=== PATIENT | male | born 1960 | race Caucasian/White ===

== ENCOUNTER → 2016-12-27 | Outpatient (CLI) | payer OTHER ==
[2016-12-27 09:34] LABS: BASO % 0.2 %; BASO ABS # 0.02 K/uL (0-0.2); COMPLETE YES; EOS % 2.2 %; HEMATOCRIT 45.1 % (42-52); IG% 0.4 %; LYMPH % 19.8 %; LYMPH ABS # 1.69 K/uL (1.2-3.4); MEAN CELL VOLUME 93.2 fL (80-100); MEAN CORPUSCULAR HEMOGLOBIN 33.5 pg (25-34); MEAN CORPUSCULAR HGB CONC 35.9 g/dl (32-36); MEAN PLATELET VOLUME 9.8 fL (7.4-10.4); MONO % 7.9 %; NEUT % 69.5 %; PLATELET COUNT 193 K/uL (130-400); RED BLOOD COUNT 4.84 M/uL (4.7-6.1); WHITE BLOOD COUNT 8.52 K/uL (4.8-10.8)
[2016-12-27 10:16] LABS: ALB/GLOB RATIO 1.2 (0.9-2); ALKALINE PHOSPHATASE 63 U/L (45-117); ALT/SGPT 84 U/L (12-78); AST/SGOT 39 U/L (15-37); BLOOD UREA NITROGEN 18 mg/dl (7-18); BUN/CREATININE RATIO 16.3 (10-20); CALCIUM 9.4 mg/dl (8.5-10.1); CARBON DIOXIDE 29 mmol/L (21-32); CHLORIDE 104 mmol/L (98-107); CHOLESTEROL 153 mg/dl (0-200); CHOLESTEROL/HDL RATIO 2.9; GLUCOSE 142 mg/dl (70-99); HDL CHOLESTEROL 52 mg/dl; LDL CHOLESTEROL CALCULATED 75 mg/dl; POTASSIUM 3.9 mmol/L (3.5-5.1); SODIUM 141 mmol/L (136-145); TRIGLYCERIDES 131 mg/dl (0-150); VERY LOW DENSITY LIPOPROT CALC 26 mg/dl
[2016-12-27 10:26] LABS: THYROID STIMULATING HORMONE 0.638 uIu/ml (0.300-4.500)
[2016-12-27 10:32] LABS: ESTIMATED AVERAGE GLUCOSE 134 mg/dl; HA1C FLAG Normal (Normal)
== END | disposition home or self-care (01) ==
LOC: C.LAB1850 08:36
PROVIDERS: ATTEND Internal Medicine Pulmonary Disease
DX: I10 Essential (primary) hypertension (principal); E78.5 Hyperlipidemia, unspecified; R73.9 Hyperglycemia, unspecified; C61 Malignant neoplasm of prostate

== ENCOUNTER → 2017-04-18 | Outpatient (CLI) | payer OTHER ==
[2017-04-18 17:49] LABS: BLOOD UREA NITROGEN 21 mg/dl (7-18); BUN/CREATININE RATIO 18.7 (10-20)
== END | disposition home or self-care (01) ==
LOC: C.LAB1850 16:28
PROVIDERS: ATTEND Urology
DX: R97.20 Elevated prostate specific antigen [PSA] (principal); C61 Malignant neoplasm of prostate

== ENCOUNTER → 2017-05-01 | Outpatient (CLI) | payer OTHER ==
[~2017-05-01] MED LIST: GADAVIST IV PRN
--- NOTE | 2017-05-01 14:24 | DIAGNOSTIC IMAGING REPORT ---
PROSTATE MRI COMBO CLINICAL HISTORY: 57 years-old Male presenting with PROSTATE CA,ELEVATED PSA 8.93 ON 12/2016. PSA 8.9 ng/mL. TECHNIQUE: Multisequence, multiplanar MR imaging of the prostate was performed before and after the administration of 10 cc of Gadavist. Additional postprocessing was performed on a separate [employer] workstation by the radiologist for 3-D volumetric segmentation of the prostate and contouring of region(s) of interest (KIM) for targeting. COMPARISON: None. FINDINGS: Prostate: The prostate measures 6.3 cm in transverse diameter (DynaCAD prostate boundary segmentation volume 90 mL). There are moderate to severe changes of benign prostatic hypertrophy. Median lobe hypertrophy is noted. Precontrast T1 weighted imaging demonstrates no evidence of intrinsic T1 hyperintensity to suggest hemorrhage. Seminal vesicles normal. Bladder: The bladder wall is mildly thickened and trabeculated consistent with chronic outlet obstruction. Bowel: Visualized portion of the rectum normal. There is a fat-containing left inguinal hernia. Peritoneum: No free fluid in the pelvis. Lymph nodes: No lymphadenopathy in the visualized portion of the pelvis. Vasculature: Iliac vessels patent. Osseous structures: Normal bone marrow signal intensity. IMPRESSION: 1. No concerning prostate lesion is seen by MRI. 2. Benign prostatic hyperplasia. 3. Left inguinal hernia. Electronically signed by: Samuel Baldwin M.D. 05/01/2017 2:22 PM Dictated Date/Time: 05/01/2017 2:14 PM
== END | disposition home or self-care (01) ==
LOC: C.MRIBC 12:43
PROVIDERS: ATTEND Urology
DX: C61 Malignant neoplasm of prostate (principal); R97.20 Elevated prostate specific antigen [PSA]; N40.0 Benign prostatic hyperplasia without lower urinary tract symptoms; K40.90 Unilateral inguinal hernia, without obstruction or gangrene, not specified as recurrent

== ENCOUNTER → 2017-05-29 | Outpatient (CLI) | payer OTHER ==
--- NOTE | 2017-05-29 17:03 | DIAGNOSTIC IMAGING REPORT ---
L FOOT MIN 3 VIEWS ROUTINE HISTORY: 57 years-old Male FOOT PAIN, L acute left-sided foot pain. Initial exam. COMPARISON: None available TECHNIQUE: 3 views of left foot FINDINGS: Type III accessory navicular. Mild first MTP joint degenerative changes. Moderate sized enthesophyte of the Achilles insertion site about the calcaneus. There is no acute fracture or dislocation. No opaque foreign body. Mild soft tissue swelling adjacent to the fifth metatarsal. IMPRESSION: 1. Mild soft tissue swelling lateral to the fifth metatarsal. No acute fracture or dislocation. 2. Moderate degenerative changes as above. The above report was generated using voice recognition software. It may contain grammatical, syntax or spelling errors. Electronically signed by: Song Bucio M.D. 05/29/2017 5:02 PM Dictated Date/Time: 05/29/2017 5:00 PM
== END | disposition home or self-care (01) ==
LOC: C.RAD1850 16:45
PROVIDERS: ATTEND Physician Assistant Medical
DX: M79.672 Pain in left foot (principal)

== ENCOUNTER → 2017-08-09 | Outpatient (CLI) | payer OTHER ==
[2017-08-09 10:35] LABS: ALBUMIN 4.1 gm/dl (3.4-5.0); ALT/SGPT 78 U/L (12-78); AST/SGOT 33 U/L (15-37); BLOOD UREA NITROGEN 15 mg/dl (7-18); CALCIUM 9.2 mg/dl (8.5-10.1); CARBON DIOXIDE 28 mmol/L (21-32); CHOLESTEROL 181 mg/dl (0-200); CREATININE 0.94 mg/dl (0.60-1.40); GLUCOSE 143 mg/dl (70-99); LDL CHOLESTEROL CALCULATED 53 mg/dl; POTASSIUM 3.8 mmol/L (3.5-5.1); SODIUM 135 mmol/L (136-145)
[2017-08-09 10:40] LABS: ALKALINE PHOSPHATASE 66 U/L (45-117); TOTAL PROTEIN 7.4 gm/dl (6.4-8.2)
[2017-08-09 12:35] LABS: HEMOGLOBIN A1C 6.6 % (4.5-5.6)
== END | disposition home or self-care (01) ==
LOC: C.LAB1850 07:10
PROVIDERS: ATTEND Internal Medicine Pulmonary Disease
DX: I10 Essential (primary) hypertension (principal); E78.5 Hyperlipidemia, unspecified; R73.9 Hyperglycemia, unspecified; R97.20 Elevated prostate specific antigen [PSA]

== ENCOUNTER → 2018-02-26 | Outpatient (CLI) | payer OTHER ==
[2018-02-26 10:10] LABS: BASO % 0.2 %; BASO ABS # 0.02 K/uL (0-0.2); EOS ABS # 0.26 K/uL (0-0.5); HEMATOCRIT 45.9 % (42-52); HEMOGLOBIN 16.2 g/dL (14.0-18.0); IG# 0.02 K/uL (0.00-0.02); LYMPH % 23.4 %; LYMPH ABS # 2.06 K/uL (1.2-3.4); MEAN CELL VOLUME 93.5 fL (80-100); MEAN CORPUSCULAR HGB CONC 35.3 g/dl (32-36); MEAN PLATELET VOLUME 10.2 fL (7.4-10.4); MONO % 8.1 %; MONO ABS # 0.71 K/uL (0.11-0.59); NEUT % 65.1 %; NEUT ABS # 5.74 K/uL (1.4-6.5); PLATELET COUNT 194 K/uL (130-400); RED CELL DISTRIBUTION WIDTH CV 12.1 % (11.5-14.5); RED CELL DISTRIBUTION WIDTH SD 41.1 fL (36.4-46.3); WHITE BLOOD COUNT 8.81 K/uL (4.8-10.8)
[2018-02-26 10:29] LABS: ALKALINE PHOSPHATASE 55 U/L (45-117); ALT/SGPT 82 U/L (12-78); AST/SGOT 34 U/L (15-37); BLOOD UREA NITROGEN 17 mg/dl (7-18); CALCIUM 9.1 mg/dl (8.5-10.1); CARBON DIOXIDE 27 mmol/L (21-32); CHOLESTEROL 170 mg/dl (0-200); GLUCOSE 132 mg/dl (70-99); LDL CHOLESTEROL CALCULATED 81 mg/dl; SODIUM 135 mmol/L (136-145); TOTAL PROTEIN 7.5 gm/dl (6.4-8.2)
[2018-02-26 10:30] LABS: HEMOGLOBIN A1C 6.5 % (4.5-5.6)
== END | disposition home or self-care (01) ==
LOC: C.LAB1850 08:27
PROVIDERS: ATTEND Urology
DX: I10 Essential (primary) hypertension (principal); E78.5 Hyperlipidemia, unspecified; R97.20 Elevated prostate specific antigen [PSA]; R73.9 Hyperglycemia, unspecified

== ENCOUNTER 2019-11-19 10:10 | Inpatient (IN) ==
--- NOTE | 2019-11-14 20:50 | Anesthesiology Consultation ---
Date of Service November 14, 2019 Assessment & Plan (1) Encounter for pre-operative examination: BSG AM DOS. EKG, UA and type and screen AM DOS (ON SURGEON'S ORDERS BUT NOT COMPLETED AT TIME OF CHART REVIEW). Chart Review Chart Review: Acceptable Risk for Surgery (pending ekg AM DOS) and Patient NOT seen in Pre Admission Testing History Surgery Operation Date: 11/19/19 07:30 Proposed Procedures p Robotic Laparoscopic Radical Retropubic Prostatectomy, Possible Open, Possible Pelvic Lymph Node Dissection, Possible Suprapubic Tube Placement - Fer Christensen MD Height/Weight Height: 5 ft 10 in Weight: 104.236 kg Allergies Allergy/AdvReac Type Severity Reaction Status Date / Time No Known Allergies Allergy Verified 10/23/19 07:59 Medications Home Medications Medication Instructions Recorded Confirmed Last Taken atorvastatin 10 mg tablet 10 mg PO QPM #90 tab 10/18/19 10/23/19 Unknown losartan-hydrochlorothiazide 1 tab PO QAM 10/23/19 10/23/19 Unknown atenolol 50 mg PO QAM 10/24/19 10/24/19 Unknown Past Medical History Medical History Hyperlipidemia Hypertension Neoplasm of prostate, malignant (Chronic) Type 2 diabetes mellitus DIETARY/LIFESTYLE MODIFICATIONS Past Family History Family History Grandfather (Paternal) Prostate cancer Diabetes Cardiac disorder Hypertension Bone cancer Father , 34yo Cancer Cancer, but pt uncertain of kind of cancer;Smoker; Mother , 84yo History of nephrectomy Dialysis patient Myocardial infarction Diabetes Brother Diabetes Brother No problems noted. Brother No problems noted. Sister Lung cancer Sister No problems noted. Sister Glaucoma Past Surgical History Surgical History H/O colonoscopy H/O cystoscopy Hx of tonsillectomy Social History Smoking Status: Former smoker tobacco type: cigarettes Smoking cigarettes per day: 2-3 PPD x 22yrs;Quit 1993 Do You Dip or Chew Tobacco: No Hx Alcohol Use: Yes Alcohol type: beer alcohol intake frequency: 0-2 drinks per day Hx Substance Use: No Testing Laboratory Results 10/15/19 WBC: 6.88 H/H: 16.2/46.1 PLATELETS: 173 SODIUM: 135 POTASSIUM: 3.8 CHLORIDE: 101 CO2: 28 BUN: 13 CREATININE: 0.98 GLUCOSE: 131 A1C: 6.7%
[~2019-11-19 10:10] MED LIST changes: +CEFAZOLIN 3000MG 72.5 ML IV SCH; -GADAVIST IV PRN; +HEPARIN SOD 5,000 UNIT/0.5 ML VIAL SQ SCH; +LR 15ML/HR IV SCH
--- NOTE | 2019-11-19 10:46 | XRay Report ---
XR chest 1V not portable CLINICAL HISTORY: 59 years-old Male presenting with preoperative evaluation. TECHNIQUE: PA view of the chest was obtained. COMPARISON: None. FINDINGS: Cardiomediastinal silhouette normal. Lungs and pleural spaces clear. Degenerative changes of the thor acic spine. Upper abdomen normal. IMPRESSION: 1. No acute cardiopulmonary disease. ACT 112: Negative or not required by law. Electronically signed by: Harinder Cunningham M.D. 11/19/2019 10:45 AM
[2019-11-19] MEDS ORDERED: GLYCOPYRROLATE 0.2 MG/ML VIAL ONE (11:46)
[2019-11-19] MEDS ORDERED: ONDANSETRON INJ 2 MG/ML 2 ML VIAL ONE ×2 (11:46→16:40)
[2019-11-19] MEDS ORDERED: LIDOCAINE HCL 2% 2 ML VIAL/AMP(20MG/ML) INFIL ONE (11:46)
[2019-11-19] MEDS ORDERED: PROPOFOL IV EMULSION 10 MG/ML 20 ML VIAL IV ONE (11:46)
[2019-11-19] MEDS ORDERED: fentaNYL citrate 100 MCG/2 ML VIAL ONE ×2 (11:46→14:12)
[2019-11-19] MEDS ORDERED: NEOSTIGMINE METHYLSULFATE 5 MG/5 ML SYR ONE (11:46)
[2019-11-19] MEDS ORDERED: MIDAZOLAM HCL 1 MG/ML 2ML VIAL ONE (11:46)
--- NOTE | 2019-11-19 12:24 | History & Physical Report ---
Date of Service November 19, 2019 Assessment & Plan (1) Neoplasm of prostate, malignant: Gl 7 prostate cancer - presenting for prostatectomy - questions answered, consent on the chart History of Present Illness Primary Care Provider: Pacheco Ballard MD 59y/o male with Gl 7 prostate cancer and a large prostate (100g) - presenting now for definitive therapy in the form of prostatectomy Allergies Allergy/AdvReac Type Severity Reaction Status Date / Time No Known Allergies Allergy Verified 11/19/19 10:26 Home Medications Home Medications Medication Instructions Recorded Confirmed Type atorvastatin 10 mg tablet 10 mg PO QPM #90 tab 10/18/19 11/19/19 Rx losartan-hydrochlorothiazide 1 tab PO QAM 10/23/19 11/19/19 History atenolol 50 mg PO QAM 10/24/19 11/19/19 History Past Med/Surg History Medical History Hyperlipidemia Hypertension Neoplasm of prostate, malignant (Chronic) Type 2 diabetes mellitus DIETARY/LIFESTYLE MODIFICATIONS Surgical History H/O colonoscopy H/O cystoscopy Hx of tonsillectomy Family History Grandfather (Paternal) Prostate cancer Diabetes Cardiac disorder Hypertension Bone cancer Father , 34yo Cancer Cancer, but pt uncertain of kind of cancer;Smoker; Mother , 84yo History of nephrectomy Dialysis patient Myocardial infarction Diabetes Brother Diabetes Brother No problems noted. Brother No problems noted. Sister Lung cancer Sister No problems noted. Sister Glaucoma Social History Preferred Language: Maori Communication Ability: Effective Visual Impairment: No Limitations Hearing Ability: Normal Email Manager Required: No Beliefs That Will Affect Care: Cultural Cultural Beliefs: NO BLOOD PRODUCTS marital status: Current Living Situation: Spouse current occupational status: retired current occupation: From [employer] Other Information That Helps Us Care for You: No Feels Safe at Home: Yes Safety Concerns: Feels Safe At This Time Smoking Status: Former smoker Tobacco Type: cigarettes ; Cigarettes Per Day: 2- 3 PPD x 22yrs;Quit 1992 ; Do You Dip or Chew Tobacco: No ; Second Hand Exposure: No ; Tobacco Cessation Education Requested by Patient: No Hx Alcohol Use: Yes Alcohol type: beer Alcohol type Comment: 6-8 beers/day; Hx Substance Use: No caffeine: Yes (3 cups/day) during the past year weight has: remained stable Review of Systems All systems reviewed & are unremarkable except as noted in HPI & below Physical Exam Constitutional: well developed and well nourished Neck: neck nontender Respiratory: normal respiratory effort; no respiratory distress and does not use accessory muscles Cardiovascular: Rate/Rhythm: regular rate Vessels: radial pulses present Extremities: no edema Gastrointestinal (Abdomen): Inspection/Auscultation: abdomen normal to inspection Percussion/Palpation: abdomen soft; abdomen nontender and no guarding Musculoskeletal: Head/Neck/Chest: normocephalic and head atraumatic Extremities: extremities normal to inspection Skin: no rashes and no lesions Trauma: no evidence of skin trauma Neurologic: awake; not obtunded Speech / Cognition: normal speech Motor/Sensory: no tremor Psychiatric: Orientation: alert and oriented x 3 Genitourinary: no CVA tenderness Lymphatic: no lymphadenopathy Results & Data Vital Signs (Past 12 Hours) Vital Signs Temp Pulse Resp BP Pulse Ox 11/19/19 10:51 37.5 C 48 L 18 175/96 H 96
--- NOTE | 2019-11-19 12:27 | Electrocardiogram Report ---
Test Reason : Blood Pressure : / mmHG Vent. Rate : 049 BPM Atrial Rate : 049 BPM P-R Int : 188 ms QRS Dur : 082 ms QT Int : 446 ms P-R-T Axes : 062 -01 018 degrees QTc Int : 402 ms Sinus bradycardia Otherwise normal ECG No previous ECGs available Confirmed by Raphael Mills ([id number]) on 11/19/2019 12:26:48 PM Referred By: Fer Christensen Confirmed By:Raphael Mills
[2019-11-19] MEDS ORDERED: BUPIVACAINE 0.5 % 5 MG/1 ML MPF 30ML VIAL ONE (12:55)
[2019-11-19] MEDS ORDERED: ROCURONIUM BROMID 50MG/5ML SYR ONE (13:08)
[2019-11-19] MEDS ORDERED: ACETAMINOPHEN 1000 MG/100 ML IV IV ONE (13:08)
[2019-11-19] MEDS ORDERED: ATROPINE SULFATE 0.1 MG/ML 10ML SYR IV PRN (13:15)
[2019-11-19] MEDS ORDERED: PROMETHAZINE HCL 12.5 MG in SODIUM CHLORIDE 0.9% 50 ML IV PRN (13:15)
[2019-11-19] MEDS ORDERED: HYDROmorphone INJ 2 MG/ML SYR/VIAL IV PRN (13:15)
[2019-11-19] MEDS ORDERED: METOCLOPRAMIDE HCL INJ 5 MG/ML 2 ML VIAL IV PRN (13:15)
[2019-11-19] MEDS ORDERED: ePHEDrine sulfate 50 MG/ML AMP IV PRN (13:15)
[2019-11-19] MEDS ORDERED: fentaNYL citrate 100 MCG/2 ML VIAL IV PRN (13:15)
[2019-11-19] MEDS ORDERED: BELLADONNA/OPIUM SUPP 60 MG SUPP PR ONE ×2 (14:01→14:44)
[2019-11-19] MEDS ORDERED: ePHEDrine sulfate 50 MG/ML AMP ONE (14:11)
[2019-11-19] MEDS ORDERED: HYDROmorphone INJ 2 MG/ML SYR/VIAL ONE (14:59)
[2019-11-19] MEDS ORDERED: SURGICEL ABSORB HEMOSTAT 2IN X 14IN TOP ONE (15:14)
[2019-11-19] MEDS ORDERED: FLOSEAL HEMOSTATIC MATRIX 10ML TOP ONE (16:35)
[2019-11-19] MEDS ORDERED: DEXAMETHASONE SOD INJ 4 MG/ML VIAL ONE (16:40)
--- NOTE | 2019-11-19 18:06 | Operative Report ---
PG Post Operative Report Pre & Post Diagnosis Operation Date: 11/19/19 12:20 Pre-Op Diagnosis: Prostate Cancer Post-Op Diagnosis: Prostate Cancer I identified the patient and participated in the time-out.: Yes Procedure Operation Date: 11/19/19 12:20 Actual Procedures p Robotic Laparoscopic-Assisted Radical Retropubic Prostatectomy with Pelvic Lymph Node Dissection - Fer Christensen MD Surgeon Manolo Christensen MD Physician Primary Care Sports Medicine Arlyn Wallace Estimated Blood Loss 350 Findings Consistent with Post-Op Diagnosis Specimens 1. Periprostatic fat 2. Right pelvic lymph nodes 3. Prostate and seminal vesicles Description of Procedure The patient was identified in the preoperative holding area, appropriate informed consents were reviewed and completed, and he was transported to the operating suite. Subcutaneous heparin was administered in the pre-operative holding area. Upon arrival in the operating suite, he received appropriate antibiotics and general anesthesia. He was positioned in dorsal lithotomy, a B&O suppository was inserted after digital rectal exam, and he was prepped and draped in standard fashion. A Fernandez catheter was inserted in the sterile field. A Veress needle was passed per umbilicus with uniform insufflation of the abdomen to 15mmHg. He was placed in steep Trendelenburg position. A periumbilical incision was then made to accommodate a 12mm Visiport with 10mm 0degree laparoscope. Inspection of the abdomen was carried out, and there was no evidence of traumatic entry or injury secondary to the Veress needle. After confirming a clear anterior abdominal wall, ports were subsequently placed in standard robotic prostatectomy fashion without incident. To begin the robotic portion of the case, the left lateral aspect of the sigmoid was mobilized off of the left pelvic side wall to allow the pouch of Heladio to be appropriately visualized. Of note, the patient was noted to have a significant left direct inguinal hernia. A loop of sigmoid colon was pushing up against this without herniating into the scrotum. I was able to easily reduce this. He also was noted to have a smaller right direct inguinal hernia. No abdominal contents were herniated in to the sac at this time. I then made an incision in the pouch of Heladio, overlying the seminal vesicles. Both SVs as well as the ampullae of the vasa were entirely dissected, with the vasa transected 3cm from the prostate. The medial umbilical ligaments were then controlled with bipolar electrocautery just inferior to the umbilicus. Following cauterization, they were divided utilizing monopolar cautery. A peritoneal incision was carried from this location towards the pelvis, however I incised around both hernias carrying this dissection much further laterally than he normally would. This exposed internal ring as well as the direct hernia sac. I was able to dissect the left hernia sac out of the hernia itself. The right side did not require any additional attention after incising the peritoneum. This incision was concluded when the vas deferens was reached. Dissection of the bladder and prostate off of the posterior aspect of the pubic arch was completed allowing full visualization of the prostate. The fat overlying the prostate was removed en bloc and passed off the table as a specimen labeled "periprostatic fat". The endopelvic fascia was cleared during this portion of the procedure, and subsequently opened - first on the right and then the left. Of note, his prostate is extremely large and visualization at the apex was somewhat challenging. I have voided over dissection in this area secondary to the poor visualization. I control the dorsal venous complex with a V lock Vicryl suture overlapping [id number] fashion. I left the remnant and needle attached to this for further suture placement as needed later in the case. I used care to avoid over dissecting the puboprostatic ligaments. The lymph node dissection was then conducted. External iliac vessels were identified on the right pelvic side wall. The packet of fat and lymphatic tissue that resides just under the iliac vein was elevated and off of the vein with a split and roll technique. The packet was dissected laterally to the circumflex vein and distally to the obturator nerve which was preserved. The proximal aspect of the packet was carried towards the bifurcation of the iliac vessels. A combination of monopolar and bipolar cautery were used to assist with control. Clips were placed at the proximal and distal aspects of the packet prior to transection. I elected to avoid a lymph node dissection on the left secondary to his hernia and distorted plans overlying the intended area of dissection. He additionally had very little tissue in this area. We thus concluded the lymph node dissection with unilateral right-sided template. My attention then returned to the prostate, with identification of the bladder neck aided by gentle traction on the Fernandez catheter and lateral to medial pressure at the presumed level of the bladder neck with the robotic instruments. An anterior cystotomy was made, the Fernandez balloon deflated and the catheter guided through the incision to allow anterior retraction. I attempted to preserve maximal bladder neck musculature as I circumferentially dissected around the bladder neck. After incision through the posterior aspect of the mucosa, the dissection was carried through detrusor muscle until the bilateral ampullae of the vasa were identified. The previously dissected vasa and SVs were brought through the incision and used to elevated the prostate anteriorly. A posterior plane behind the prostate was then developed - splitting Godwin nvilliers's fascia. This dissection was carried as far as possible towards the apex as well as far as possible laterally. An incision in the lateral prostatic fascia was then made bilaterally to fac ilitate control of the vascular pedicles. The pedicles were each controlled with a series of Weck clips. The neurovascular bundles were identified and preserved. Of note, as I approach the apex of the prostate on the left I was able to identify an additional protuberant section of prostate which was kept with the specimen. The apical attachments of the prostate were remaining at that stage. The DVC was divided with bipolar electrocautery. I utilized the previously placed V lock suture to continue suture ligation of the remnant aspects of the DVC and ensure excellent hemostasis. Fara-prostatic tissue incised with sharp dissection and monopolar cautery. Maximal urethral length was preserved before dividing the urethra sharply. Given the good hemostasis I was able to closely follow the contour of the apex of the prostate and preserve all urethral tissue. The prostate was entirely freed at that point, and collected in an EndoCatch bag before being moved out of the field of vision. Hemostasis was achieved with several focal [id number] sutures utilizing a 3- V-xu followed by a posterior reconstruction utilizing an additional 3 OV lock stitch. Anastomosis of the bladder and urethra was completed utilizing a double armed V-Lock stitch. A new Fernandez catheter was inserted and the anastomosis tested with irrigation. There was no evidence of leak. FloSeal coagulant was placed around the anastomosis. Utilizing 2-0V lock suture to reapproximate the hernia defects and avoid abdominal contents falling into these areas in the immediate postoperative period. I additionally placed a Moreno style suture on the right aspect of the bladder to allow marsupialization of his lymph node dissection and avoidance of lymphocele. The robot was undocked, the specimen extracted through expansion of the fara- umbilical camera port. The fascia was closed with a series of 0-PDS figure of 8 stitches. The right lead recreation assistant port was closed in two layers - with a figure of 8 0-Vicryl to reapproximate the fascia followed by 4-0 Monocryl to close the skin. Monocryl was used to close all other skin incisions. All wounds were dressed with Dermabond. The case was concluded and the patient taken to the PACU in stable condition. Arlyn Wallace assisted from incision to closure I attest to the content of the Intraoperative Record and any orders documented therein. Any exceptions are noted below.
[2019-11-19] MEDS ORDERED: ACETAMINOPHEN 325 MG TAB PO PRN (18:50)
[2019-11-19] MEDS ORDERED: MoRPHine SULFATE 2 MG/ML CARP IV PRN ×2 (18:50)
[2019-11-19] MEDS ORDERED: KETOROLAC TROMETHAMINE 15 MG/ML VIAL IV PRN (18:50)
[2019-11-19] MEDS ORDERED: HYDROCODONE/ACETAMOPHEN 5/325MG TAB PO PRN ×2 (18:50)
[2019-11-19] MEDS ORDERED: ONDANSETRON INJ 2 MG/ML 2 ML VIAL IV PRN (18:50)
[2019-11-19 18:52] LABS: Basophils # (auto) 0.02 K/uL (0-0.2); Basophils % (auto) 0.1 %; Eosinophils # (auto) 0.02 K/uL (0-0.5); Eosinophils % (auto) 0.1 %; Hematocrit (blood only) 43.2 % (42-52); Immature Granulocytes # (auto) 0.04 K/uL (0.00-0.02); Immature Granulocytes % (auto) 0.2 %; Lymphocytes # (auto) 1.55 K/uL (1.2-3.4); Lymphocytes % (auto) 8.4 %; Mean Corpuscular Hemoglobin 32.5 pg (25-34); Mean Corpuscular Volume 93.7 fL (80-100); Mean Platelet Volume 9.8 fL (7.4-10.4); Monocytes # (auto) 0.49 K/uL (0.11-0.59); Monocytes % (auto) 2.7 %; Neutrophils # (auto) 16.34 K/uL (1.4-6.5); Neutrophils % (auto) 88.5 %; Platelet Count 218 K/uL (130-400); RDW Coefficient of Variation 12.2 % (11.5-14.5); RDW Standard Deviation 41.4 fL (36.4-46.3); Red Blood Count 4.61 M/uL (4.7-6.1); White Blood Count 18.46 K/uL (4.8-10.8)
[2019-11-19 18:53] LABS: Mean Corpuscular Hgb Conc 34.7 g/dL (32-36)
[2019-11-19] MEDS: LACTATED RINGER'S 1,000 ML IV SCH (19:02)
--- NOTE | 2019-11-19 19:04 | Anesthesiology Progress Note ---
Date of Service November 19, 2019 Anesthesia Post Procedure Vital Signs Vital Signs: Temp Pulse Pulse Resp BP Pulse Ox 11/19/19 18:50 36.5 C 63 14 132/77 100 11/19/19 18:30 36.6 C 62 12 139/85 97 11/19/19 18:20 65 12 136/74 99 11/19/19 18:14 36.2 C L 72 17 124/85 97 11/19/19 10:51 37.5 C 48 L 18 175/96 H 96 Transfer of Care Handoff Completed per policy Notes Mental Status: alert / awake / arousable Patient Amnestic to Procedure: Yes Nausea / Vomiting: adequately controlled Pain: adequately controlled Airway Patency, RR, SpO2: stable & adequate BP & HR: stable & adequate Hydration State: stable & adequate Anesthetic Complications: no major complications apparent and Pt Satisfied with anesthetic care
[2019-11-19 19:10] LABS: Calcium 8.4 mg/dl (8.5-10.1); Creatinine Clr Calc Pharmacy 75.6 ml/min; Est GFR (African American) 71.6; Est GFR (Non-African American) 61.8; Potassium 4.3 mmol/L (3.5-5.1)
[2019-11-19] MEDS ORDERED: ATORVASTATIN 10 MG TAB PO SCH (21:00)
[2019-11-19] MEDS: CEFAZOLIN 2000MG 2,000 MG/15 ML SYR IV SCH (21:58)
[2019-11-19] MEDS: LOSARTAN/HCTZ 50/12.5MG TAB PO SCH (22:35)
[2019-11-20] MEDS: LACTATED RINGER'S 1,000 ML IV SCH ×2 (01:58→09:23)
[2019-11-20 05:13] LABS: Hematocrit (blood only) 37.3 % (42-52); Immature Granulocytes # (auto) 0.03 K/uL (0.00-0.02); Immature Granulocytes % (auto) 0.3 %; Lymphocytes # (auto) 0.83 K/uL (1.2-3.4); Lymphocytes % (auto) 7.8 %; Mean Corpuscular Hemoglobin 32.7 pg (25-34); Mean Corpuscular Hgb Conc 34.9 g/dL (32-36); Mean Platelet Volume 9.9 fL (7.4-10.4); Monocytes # (auto) 0.96 K/uL (0.11-0.59); Neutrophils # (auto) 8.83 K/uL (1.4-6.5); Neutrophils % (auto) 82.9 %; Platelet Count 197 K/uL (130-400); RDW Coefficient of Variation 12.1 % (11.5-14.5); RDW Standard Deviation 41.8 fL (36.4-46.3); Red Blood Count 3.97 M/uL (4.7-6.1); White Blood Count 10.65 K/uL (4.8-10.8)
[2019-11-20] MEDS: CEFAZOLIN 2000MG 2,000 MG/15 ML SYR IV SCH (05:31)
[2019-11-20 05:33] LABS: BUN Creatinine Ratio 12.6 (10-20); Calcium 8.5 mg/dl (8.5-10.1); Creatinine Clr Calc Pharmacy 70.6 ml/min; Est GFR (African American) 65.8; Est GFR (Non-African American) 56.8; Potassium 4.3 mmol/L (3.5-5.1)
[2019-11-20] MEDS ORDERED: ATENOLOL 50 MG TABLET PO SCH (09:00)
[2019-11-20] MEDS: LOSARTAN/HCTZ 50/12.5MG TAB PO SCH (09:21)
--- NOTE | 2019-11-20 09:47 | Urology Progress Note ---
Date of Service November 20, 2019 Assessment & Plan (1) Neoplasm of prostate, malignant: Day 1 status post robotic prostatectomy Recovery on pace Ambulate Advance diet If he continues to do well we will plan for discharge home later this afternoon Subjective Doing quite well after his prostatectomy He has been ambulatory He denies any significant pain His urine is clear appropriately He is asking for food Overall feels very well Review of Systems Review of Systems: All systems reviewed & are unremarkable except as noted in HPI & below Physical Exam Physical Exam: Incisions appropriate, urine clear, no oxygen requirement Results & Data Vital Signs (Past 12 Hours) Vital Signs Temp Pulse Resp BP Pulse Ox 11/20/19 07:44 36.7 C 65 18 134/73 93 11/20/19 03:31 36.6 C 66 16 113/70 92 11/19/19 23:11 36.3 C L 72 16 129/79 92 11/19/19 21:46 79 18 160/93 H 96 PG Care Time/CCT Total # of Minutes Spent Total Time Spent with Patient: Total time spent is greater than 50% in coordination of care (as documented) at patient's floor/unit and/or counseling patient: Coding Level of Care Code 94538 Subseq Hosp Care Lvl 2 Diagnoses Neoplasm of prostate, malignant C61
[2019-11-20 15:50] VITALS: BP 142/75; PULSE 67; TEMP 99.5; O2SAT 95
--- NOTE | 2019-11-24 09:06 | Discharge Summary ---
Date of Service November 24, 2019 Admission HPI Per Admitting Provider 59y/o male with Gl 7 prostate cancer and a large prostate (100g) - presenting now for definitive therapy in the form of prostatectomy Principal Diagnosis Prostate cancer Discharge Data Allergies Allergy/AdvReac Type Severity Reaction Status Date / Time No Known Allergies Allergy Verified 11/19/19 10:26 Procedures Performed Operation Date: 11/19/19 12:20 Actual Procedures p Robotic Laparoscopic-Assisted Radical Retropubic Prostatectomy with Pelvic Lymph Node Dissection - Fer Christensen MD Hospital Course (1) Neoplasm of prostate, malignant: Patient admitted for a robotic prostatectomy - details of the procedure as dictated previously in my operative report - in summary, he tolerated the procedure very well - he was in stable condition overnight with appropriate urine output and stable labs - he was subsequently discharged home with a verde catheter - he was in stable condition at the time of discharge Total Time Total Time Spent Total Time Spent (In Minutes): 15 Total Time Includes: Examination of the Patient and Discharge Planning Discharge Plan Discharge Items Patient Disposition: Home - Self-Care Reason For Visit: Prostate Cancer Discharge Diagnosis: Prostate Cancer Activity: Per Instructions section Lifting: No more than 25 pounds Bathing Comment: Okay to shower in 1 day, no tub bath or soaking until follow-up Sexual Activity: Wait until after follow-up appointment Exercise/Sports: Wait until after follow-up appointment Driving/Machine Use: Okay to resume 1 day after discharge, no driving while taking prescription pain medication Non-emergency contact: Urologist Call non-emergency contact if: your pain is not controlled, your pain is worsening, you have a fever, your temperature is above 101, your wound has increased redness and your wound has increased drainage Follow-up/Referrals: Pacheco Ballard MD [Primary Care Provider] - Fer Christensen MD [Physician] - 12/04/19 11:00 am [facility],RN [Physician] - 11/26/19 9:40 am Diet: Regular Addtl Attending Provider Instructions: Please take all medications as prescribed and keep all follow-ups as scheduled. Please call our office at [phone] with any questions, concerns or need to reschedule appointments for any reason. We are happy to assist you We have sent an antibiotic to your pharmacy of choice. Please begin antibiotic as prescribed the day BEFORE your scheduled voiding trial at [facility]. Please continue antibiotic every 12 hours through the day AFTER your voiding trial. Activity: We recommend having someone with you for the first few days after surgery to help care for you. For the first 2 weeks after surgery, we would like you to get up and walk around your house. However, we recommend limit physical activity that would increase your heart rate. This will allow your body to rest and heal. Take naps if you feel tired. Don't lift anything heavier than 10 pounds, mow the law or ride a bicycle until your follow-up appointment. Please avoid long car rides. Home Care: Unless directed otherwise, drink 6 to 8 glasses of water a day (enough to keep your urine light colored). This will also help keep a healthy flow of urine. We recommend using a stool softener for the first two weeks to avoid constipation. Verde Catheter or Suprapubic Catheter care: Keep the catheter well secured with either a leg back or leg strap with large bag. Empty your bag when it's about half full. You may notice some blood in the ba g. This is normal after surgery and while the catheter is in place. Use mild soap (such as Dove or Dial) and water to wash the catheter and the head of your penis daily, or more frequently if needed. Return to your normal diet, we encourage good protein intake to promote healing. You may shower as normal. Please avoid tub baths or soaking until catheter removed and incisions well healed. Wearing sweat pants while you have the catheter is recommended, they will be more comfortable. Follow-up Your follow up appointments for having your catheter removed, and follow up with your physician should already be scheduled. If you have any questions regarding this, please contact our office. Your final pathology report will be discussed at your physician follow-up appointment. Call [facility] at [phone] right away if you have any of the following: Chest pain or trouble breathing (call [phone] or go to the hospital) Fever of 101F or higher, uncontrolled vomiting Heavy bleeding, clots, or bright red blood from the catheter Catheter that falls out or stops draining Foul-smelling discharge from your catheter Redness, swelling, warmth, or increased pain at your incision site Drainage, pus, or bleeding from your incision Pending Studies at Discharge: Yes Studies:: pathology Stand-Alone Forms: My [facility], Opioid Pain Management, Smoking Cessation Medications and DC Order Prescriptions: New oxycodone-acetaminophen [Percocet] 5-325 mg tablet 1 tab PO TID PRN (Reason: pain) Qty: 14 RF: 0 docusate sodium [Colace] 100 mg capsule 100 mg PO BID Qty: 60 RF: 0 Continued atorvastatin 10 mg tablet 10 mg PO QPM Qty: 90 RF: 3 losartan-hydrochlorothiazide 100-25 mg tablet 1 tab PO QAM RF: 0 atenolol 50 mg tablet 50 mg PO QAM RF: 0 Discharge Orders: Discharge Order (Routine); Ordered 11/20/19 Ordered By: Naomie Pina/Other Patient Handouts: Indwelling Urinary Catheter Dc, Discharge Instructions Caring for Your Leg Bag Admission Data Admit Date/Time: 11/19/19 17:57 Attending Provider: Fer Christensen Admit Provider: Fer Christensen Primary Care Provider: Pacheco Ballard Other Providers: Gabino Sofia Other Interventions: Discharge Summary Assessment (RN) Last Done: 11/20/19 14:19 DC Date/Time DO NOT enter until pt leaves facility: 11/20/19 16:27 Coding Level of Care Code D/C Day Management <30 mins Diagnoses Neoplasm of prostate, malignant C61
== END 2019-11-20 16:27 | disposition home or self-care (01) | DRG 708 ==
LOC: ASU 10:10 → 3E 17:57